=== PATIENT | male | born 1990 | race Caucasian/White ===

== ENCOUNTER 2017-06-17 10:36 | Emergency (ER) | payer SELFPAY ==
[~2017-06-17] VITALS: Ht 182.9 cm; Wt 83.9 kg
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
[2017-06-17] MEDS ORDERED: TDAP [DIPH/PERTUSSIS/TET] 0.5 ML VIAL IM ONE ×2 (11:28→11:30)
[2017-06-17 13:00] VITALS: BP 125/84
--- NOTE | 2017-06-17 13:04 | NUR ---
Patient discharged to home in stable condition. Written and verbal after care instructions given. Patient verbalizes understanding of instruction. Prescription given
== END 2017-06-17 13:03 | disposition home or self-care (01) ==
LOC: ER 10:40
DX: S01.01XA Laceration without foreign body of scalp, initial encounter (principal); V49.49XA Driver injured in collision with other motor vehicles in traffic accident, initial encounter; Y93.89 Activity, other specified; Y92.413 State road as the place of occurrence of the external cause; Y99.8 Other external cause status
CPT/HCPCS: 90715; A4606; A6403; Z7610